=== PATIENT | female | born 1970 | race Caucasian/White ===

== ENCOUNTER 2023-11-05 20:33 | Emergency (ER) | payer BC, SELFPAY ==
[2023-11-05 20:48] VITALS: BP 110/58; PULSE 105; RESP 16; TEMP 36.5; O2SAT 96
--- NOTE | 2023-11-05 21:14 | ED.GENADUL_ITS ---
Discharge Plan Disposition Patient Disposition: Against Medical Advice Condition: Stable Discharge Details Clinical Impression: Seizure-like activity Primary Care Provider: None,None ED Provider: Luis Carranza Home Meds and New Rx's Prescriptions: New diazepam 5-7.5-10 mg kit 5 mg LA Q6H PRN (Reason: seizure) Qty: 1 0RF levetiracetam 500 mg tablet 500 mg PO BID 30 Days Qty: 60 0RF Discharge Instructions Instructions: Diazepam, Levetiracetam, Leaving Against Medical Advice, Seizures, Adult ED Additional Instructions: You were seen in the emergency department for your observed seizure-like activity, CT of your head is negative, there are no major electrolyte abnormalities, with any loss of consciousness we like to perform cardiac testing, you do have some evidence of left ventricular hypertrophy on your EKG and your initial troponin was negative, you chose to leave AGAINST MEDICAL ADVICE prior to a 3-hour repeat troponin. You chose to leave AGAINST MEDICAL ADVICE prior to [facility] neurology consult for admission for new onset seizure which likely warrants EEG and MRI. I am happy to honor your wishes towards your health care and he did acknowledge the risks of possible undiagnosed seizure disorder and recurrent seizures, we are sending you out AGAINST MEDICAL ADVICE with a prescription for rectal diazepam to use in case of status epilepticus at home. Please advise your family to use this medication per rectum should you go into uncontrolled seizure activity. I have also sent you home with a paper prescription for Keppra, you state you did not want to start it until you possibly had another seizure. I have placed you on the list for primary care initiation as well as neurology follow-up here at [facility] this week. If they cannot perform EEG as suspected need to pursue primary care referral to [facility] neurology for EEG. Referrals: [facility] [Provider Group] Discharge Data Discharge Date/Time-TO BE ENTERED AT DEPARTURE: 11/06/23 00:09 HPI General Date/Time Provider Initiated Documentation: 11/05/23 21:02 . HPI Narrative: 53 year-old female presents to ED today by POV/ambulating with a chief complaint of tonic-clonic seizure activity for about 30 seconds with onset at exactly 2006 this evening. Patients seizure-like activity was witnessed by family, son is an EMT- states she was not responsive, had decorticate posturing, no incontinence. Quality described as no pain anywhere- patient did not hit head or bite tongue, no radiation to fever, recent illness, visual changes, chest pain, shortness of breath, neck stiffness, ETOH intake, lack of sleep. Patient was post-ictal after the event. Severity is described as severe per family. Palliating factors include nothing specific. Provoking factors include nothing specific. Patient has no history of seizure disorder. Patient not anticoagulated. Related Data Home Medications ?Medication ?Instructions ?Recorded ?Confirmed diazepam 5 mg-7.5 mg-10 mg rectal 5 mg LA Q6H PRN seizure 2 doses #1 11/05/23 kit ea levetiracetam 500 mg tablet 500 mg PO BID seizure 30 days #60 11/05/23 tabs Previous Rx's ?Medication ?Instructions ?Recorded diazepam 5 mg-7.5 mg-10 mg rectal 5 mg LA Q6H PRN seizure 2 doses #1 11/05/23 kit ea levetiracetam 500 mg tablet 500 mg PO BID seizure 30 days #60 11/05/23 tabs Allergies Allergy/AdvReac Type Severity Reaction Status Date / Time No Known Allergies Allergy Unverified 11/05/23 21:03 General Stated Complaint: Seizure KD: 3 Review of Systems All systems reviewed & are unremarkable except as noted in HPI and below Exam Narrative Exam Narrative: GENERAL APPEARANCE: Well-nourished, non-toxic, awake and alert, atraumatic, no acute distress. SKIN: Warm, pink, dry, intact, without rashes/lesions/ulcerations. HEAD: Normocephalic, atraumatic, normal hair distribution for gender/age. EYES: Pupils PERRLA, EOMs intact without nystagmus, normal conjunctiva, no exudates on lids/lashes. ENT: Nares patent, no circumoral cyanosis, no facial swelling NECK: Supple, trachea midline, painless cervical ROM. LUNGS/CHEST: Lungs CTA bilaterally- no rhonchi/rales/wheezes, non-labored respirations, normal A/P diameter, symmetrical expansion, no chest wall deformity HEART (CV/PV): Regular rate and rhythm without murmur, no peripheral edema, no JVD. ABDOMEN: Soft, non-distended, no guarding. MSK: Normal ROM, no swelling/deformity to bilateral UEs or LEs, moving all extremities without weakness, no cyanosis, spine midline without tenderness, normal curvature. NEURO: Mental Status AAOx4 - alert to person, place, time, events No facial droop, no forehead involvement, no dysmetria with FNF, heel-chen, HINTS exam negative, CN2-12 intact. Motor: No focal weakness - strength 5/5 in bilateral UEs and LEs, proximal and distal, symmetric, no pronator drift Sensory: sensation intact to light touch globally. Gait normal: patient ambulated without ataxia into ED room. PSYCH: euthymic, cooperative, pleasant, appropriate speech Course Vital Signs Vital signs: Vital Signs Temperature 36.5 C 11/05/23 20:48 Pulse 105 H 11/05/23 20:48 Respiratory Rate 16 11/05/23 20:48 Blood Pressure 110/58 L 11/05/23 20:48 Pulse Oximetry 96 11/05/23 20:48 Temperature 36.5 C 11/05/23 20:48 Pulse 105 H 11/05/23 20:48 Respiratory Rate 16 11/05/23 20:48 Respiratory Effort Normal 11/05/23 20:57 Respiratory Depth Normal 11/05/23 20:57 Respiratory Pattern Normal 11/05/23 20:57 Blood Pressure 110/58 L 11/05/23 20:48 Pulse Oximetry 96 11/05/23 20:48 Oxygen Delivery Method Room Air 11/05/23 20:48 Oxygen Flow Rate 0 11/05/23 20:48 Pain Level 0 11/05/23 20:48 Medical Decision Making This dictation utilizes [id number] dictation software and may contain unedited grammatical errors. 53 year-old female presents to ED today by POV/ambulating with a chief complaint of tonic-clonic seizure activity for about 30 seconds with onset at exactly 2006 this evening. Patients seizure-like activity was witnessed by family, son is an EMT- states she was not responsive, had decorticate posturing, no incontinence. Quality described as no pain anywhere- patient did not hit head or bite tongue, no radiation to fever, recent illness, visual changes, chest pain, shortness of breath, neck stiffness, ETOH intake, lack of sleep. Patient was post-ictal after the event. Severity is described as severe per family. Palliating factors include nothing specific. Provoking factors include nothing specific. Patient has no history of seizure disorder. Patients' medical history: noncontributory. Family and social history: noncontributory. Pertinent exam findings / vital signs include neuro intact, benign cardiopulmonary exam, nontoxic vitals. Differential / pathologies of concern include seizure disorder, focal seizure, tonic-clonic seizure, brain mass, electrolyte abnormality, thyroid pathology, tickborne illness, bacteremia, unlikely meningismus. Diagnostic studies of: -CBC, BMP, lactate, lipase, liver panel, alcohol level, magnesium, TSH, urinalysis, serial troponin, tick and Lyme panel, blood cultures, EKG, CT head without. -CBC shows no leukocytosis -Lactate 1.7 -CMP totally benign -Initial troponin negative, repeat pending -Lipase 38 within normal limits -TSH benign -EtOH negative -Tick panel pending -Liver panel negative -Magnesium negative -UA not collected at time of shift change -EKG shows sinus rhythm at 95 bpm with P waves followed by narrow complex QRS with normal axis, no ST changes, does show some evidence of LVH voltage criteria with poor R wave progression -CT head shows no acute abnormality Interventions of: -None. ED Course/Assessment/Plan: 53-year-old female presents with seizure activity, witnessed by family, unresponsive episode with fall without trauma to the ground, decorticate posturing, denies active chest pain was somewhat postictal after the incident without any history of seizure disorder, denies EtOH intake, denies any viral syndrome leading up to this, denies any other seizure threshold lowering activities like lack of sleep or intoxication, laboratory workup was benign, tick panel pending, UA not collected, initial troponin negative with repeat pending due to possible loss of consciousness with a reassuring EKG, CT head shows no acute abnormality. Would recommend the patient's seek admission with neuroconsult for possible MRI and EEG for unprovoked seizure, advised the patient that if she did not wish to have this plan that they should sign out AGAINST MEDICAL ADVICE and pursue these in an urgent outpatient manner. Patient stayed to be loaded with Keppra I did provide prescriptions for Diastat and Keppra for 30 days, I placed patient on primary care follow-up list, as well as neurology here at the hospital. Stressed strict return criteria for further seizures, stressed the importance of avoiding driving if possible due to possibility of unprovoked tonic-clonic seizure, patient acknowledged these risks, did not wish to stay for neurology consult with [facility] nor repeat troponin. Patient acknowledged risks of undiagnosed seizure disorder and possibility of coma and and will return to the ER for any such recurrences of seizure activity. Findings not consistent with status epilepticus. Disposition of Seizure-like Activity. Patient verbalized understanding of the plan and return to ED criteria and engaged in shared decision making. Medical Records Medical records reviewed: Yes I reviewed the patient's medical records. Imaging Data Radiologic Study: Attestation: I personally reviewed and interpreted this imaging study as follows: Imaging: CT Scan Radiologist's impression: Exam: CT Head Without Contrast Exam date and time: 11/05/2023 9:58 PM Age: 53 years old Clinical indication: Other: Seizure TECHNIQUE: Imaging protocol: Computed tomography of the head without contrast. Radiation optimization: All CT scans at this facility use at least one of these dose optimization techniques: automated exposure control; mA and/or kV adjustment per patient size (includes targeted exams where dose is matched to clinical indication); or iterative reconstruction. COMPARISON: No relevant prior studies available. FINDINGS: Brain: No intracranial hemorrhage. No mass. No definite edema. Cerebral ventricles: No hydrocephalus. Paranasal sinuses: No acute sinusitis. Mastoid air cells: No significant effusion. Orbital cavities: Unremarkable as visualized. Bones: No acute fracture. Soft tissues: Unremarkable. IMPRESSION: No definite acute intracranial abnormality. Given history of seizures, consider MRI for further evaluation. Dictated and Authenticated by: Celso Watt MD. Lab Data Lab results reviewed: Yes I reviewed the patient's lab results. Labs: 11/05/23 22:23 Blood Blood Culture - Pending 11/05/23 21:56 Blood Blood Culture - Pending Laboratory Tests Range/Units 11/05/23 21:29 WBC (4.4-10.8) 10^3/uL 4.64 RBC (3.93-5.22) 10^6/uL 4.61 Hgb (11.2-15.7) g/dL 13.4 Hct (36.0-46.0) % 40.4 MCV (80-95) fL 88 MCH (27.0-33.0) pg 29.1 MCHC (32.0-36.0) % 33.2 RDW (11.7-14.6) % 12.1 Plt Count (130-400) 10^3/uL 228 MPV (8.0-11.0) fL 10.1 Immature Gran % % 0.2 Neutrophils % % 44.1 Lymphocytes % % 44.6 Monocytes % % 7.8 Eosinophils % % 2.2 Basophils % % 1.1 Nucleated RBC % (0.0-0.3) % 0.0 Absolute Neutrophils (1.2-6.7) 10^3/uL 2.05 Absolute Lymphocytes (1.2-3.4) 10^3/uL 2.07 Absolute Monocytes (0.1-0.8) 10^3/uL 0.36 Absolute Eosinophils (0.0-0.7) 10^3/uL 0.10 Absolute Basophils (0.0-0.2) 10^3/uL 0.05 VBG Lactate (0.6-1.4) mmol/L 1.7 H Sodium (136-145) mmol/L 144 Potassium (3.5-5.1) mmol/L 3.9 Chloride (98-107) mmol/L 105 Carbon Dioxide (21.0-32.0) mmol/L 31.2 Anion Gap (3-11) mmol/L 7.8 BUN (7-18) mg/dL 12 Creatinine (0.55-1.02) mg/dL 0.7 Est GFR (CKD-EPI 2020) (mL/min/1.73m2) 102.07 Glucose (74-106) mg/dL 108 H Calcium (8.5-10.1) mg/dL 9.1 Magnesium (1.8-2.4) mg/dL 2.1 Total Bilirubin (0.2-1.0) mg/dL 0.26 Conjugated Bilirubin (0.0-0.2) mg/dL 0.1 AST (15-37) U/L 15 ALT (14-59) U/L 18 Alkaline Phosphatase (46-116) U/L 77 Troponin I (< or =60) ng/L < 50 Total Protein (6.4-8.2) g/dL 7.0 Albumin (3.4-5.0) g/dL 4.0 Lipase (16-77) U/L 38 TSH (0.36-3.74) uIU/mL 2.60 Ethyl Alcohol (<10) mg/dL < 3.0 Quality:SDOH Health Related Social Needs: No Data to Display PFSH All Active Problems (Updated 11/05/23 @ 23:48 by SHY Brunner) Seizure-like activity (Acute) Social History Smoking risk assessment performed?: No
--- NOTE | 2023-11-05 21:15 | RT.EKG_ITS ---
APPROVED REPORT Exam: Resting ECG Reason for Exam: seizure, new onset Patient Location: E HR:95 bpm ECG Measurements Heart Rate 95 AXIS IL 163 P 63 QRSd 101 QRS 69 QT 375 T 56 QTc 472 Conclusion Sinus rhythm...normal P axis, V-rate 60- 99 Left atrial enlargement...P, P'>60mS, <-0.15mV V1 Left ventricular hypertrophy...multiple LVH criteria sinus rhythm, normal axis, normal intervals, non ischemic, LVH
[2023-11-05 21:34] LABS: Lactate 1.7 mmol/L (0.6-1.4)
[2023-11-05 21:37] LABS: Abs Immature Grans 0.01 10^3/uL (0.0-0.06); Absolute Basophil Count 0.05 10^3/uL (0.0-0.2); Absolute Lymphocyte Count 2.07 10^3/uL (1.2-3.4); Absolute Monocyte Count 0.36 10^3/uL (0.1-0.8); Absolute Neutrophil Count 2.05 10^3/uL (1.2-6.7); Basophils % 1.1 %; Eosinophils % 2.2 %; HCT 40.4 % (36.0-46.0); HGB 13.4 g/dL (11.2-15.7); Immature Grans % 0.2 %; Lymphocytes % 44.6 %; MCH 29.1 pg (27.0-33.0); MCHC 33.2 % (32.0-36.0); MCV 88 fL (80-95); MPV 10.1 fL (8.0-11.0); Monocytes % 7.8 %; Neutrophils % 44.1 %; Platelet Count 228 10^3/uL (130-400); RBC 4.61 10^6/uL (3.93-5.22); RDW 12.1 % (11.7-14.6); RDW-SD 39.4 fL; WBC 4.64 10^3/uL (4.4-10.8)
[2023-11-05 22:04] LABS: ALT 18 U/L (14-59); AST 15 U/L (15-37); Alkaline Phosphatase 77 U/L (46-116); Anion Gap 7.8 mmol/L (3-11); BUN 12 mg/dL (7-18); Bilirubin, Direct 0.1 mg/dL (0.0-0.2); Bilirubin, Total 0.26 mg/dL (0.2-1.0); CO2 31.2 mmol/L (21.0-32.0); CREATININE 0.7 mg/dL (0.55-1.02); Calcium 9.1 mg/dL (8.5-10.1); Chloride 105 mmol/L (98-107); Estimated GFR 102.07 (mL/min/1.73m2); Glucose 108 mg/dL (74-106); Lipase 38 U/L (16-77); Magnesium 2.1 mg/dL (1.8-2.4); Potassium 3.9 mmol/L (3.5-5.1); Sodium 144 mmol/L (136-145); Troponin I < 50 ng/L (< or =60)
--- NOTE | 2023-11-05 22:05 | DI.CT_ITS ---
Exam(s) CT HEAD WO EXAM: CT HEAD WO CLINICAL HISTORY: new seizure activity. TECHNIQUE: Imaging Protocol: Axial computed tomography images with coronal and sagittal reformatted images were created and reviewed COMPARISON: No exams were available for comparison FINDINGS: Ventricles and Extra axial spaces: Normal in size and morphology for the patient's age. Hemorrhage: None. Cerebral parenchyma: Normal. Midline shift: None. Brainstem/Cerebellum: Normal. Calvarium: Normal. There is soft tissue seen in the external auditory canals likely reflecting cerume n. Please correlate clinically. Visualized Paranasal sinuses/Mastoids: Clear. Soft Tissues: Unremarkable. IMPRESSION: No acute intracranial process. If there is continued clinical concern, an MRI should be considered f or further evaluation. RADIATION DOSE DELIVERED: Total DLP DATA REPOSITORY: All CT scans at this facility are submitted to the National Radiology Data Registry (NRDR) Dose Index Registry (DIR) with the [employer] ([employer]). RADIATION OPTIMIZATION: All CT scans at this facility use at least one of these dose optimization te chniques: automated exposure control; mA and/or kV adjustment per patient size (includes targeted exa ms where dose is matched to clinical indication); or iterative reconstruction.
[2023-11-05 22:07] LABS: ETHANOL BLOOD < 3.0 mg/dL (<10)
--- NOTE | 2023-11-05 23:09 | DI.VRAD_ITS ---
PROCEDURE INFORMATION: Exam: CT Head Without Contrast Exam date and time: 11/05/2023 9:58 PM Age: 53 years old Clinical indication: Other: Seizure TECHNIQUE: Imaging protocol: Computed tomography of the head without contrast. Radiation optimization: All CT scans at this facility use at least one of these dose optimization techniques: automated exposure control; mA and/or kV adjustment per patient size (includes targeted exams where dose is matched to clinical indication); or iterative reconstruction. COMPARISON: No relevant prior studies available. FINDINGS: Brain: No intracranial hemorrhage. No mass. No definite edema. Cerebral ventricles: No hydrocephalus. Paranasal sinuses: No acute sinusitis. Mastoid air cells: No significant effusion. Orbital cavities: Unremarkable as visualized. Bones: No acute fracture. Soft tissues: Unremarkable. IMPRESSION: No definite acute intracranial abnormality. Given history of seizures, consider MRI for further evaluation. Dictated and Authenticated by: Celso Watt MD. Ordering:ANGIE Smith MD
[2023-11-05] MEDS: levETIRAcetam 2,000 MG in Normal Saline 100 ML 400 MG IVPB (23:47)
[2023-11-05] MEDS: Normal Saline 1,000 ML 1000 ML IV (23:48)
[2023-11-06 00:07] VITALS: BP 119/47; PULSE 86; RESP 16; O2SAT 98
--- NOTE | 2023-11-06 01:23 | NUR.NOTE ---
Referral to Care Management and [facility] Neurology for f/u in a week if possible. Neurology for new onset seizure, Care Management to establish pcp.Nursing Note:
[2023-11-07 12:33] LABS: Lyme Ab w Rflx to Lyme Confirm Negative (Negative)
[2023-11-08 20:23] LABS: Anaplasma phagocytophilum Negative (Negative); B. miyamotoi PCR Negative (Negative); Babesia divergens/MO-1 Negative (Negative); Babesia duncani Negative (Negative); Babesia microti Negative (Negative); Ehrlichia chaffeensis Negative (Negative); Ehrlichia ewingii/canis Negative (Negative); Ehrlichia muris eauclairensis Negative (Negative)
== END 2023-11-06 00:09 | disposition left against medical advice (07) ==
PROVIDERS: Emergency Provider Physician Assistant
DX: R56.9 Unspecified convulsions (principal); R94.31 Abnormal electrocardiogram [ECG] [EKG]; Z53.29 Procedure and treatment not carried out because of patient's decision for other reasons
CPT/HCPCS: 36415; 80048; 80076; 83690; 87040; 87798; 93005; 96365; 99285; 70450; 80320; 83605; 83735; 84443; 84484; 85025; 86618; 93010; 99284; J1953